=== PATIENT | female | born 2000 | race Two or more races ===

== ENCOUNTER 2025-05-19 17:45 | Emergency (ER) | payer MEDICAID, SELFPAY ==
[2025-05-19 17:47] VITALS: BMI 15.9
[2025-05-19 17:57] VITALS: BP 116/70; PULSE 89; RESP 20; TEMP 37.1; O2SAT 100
--- NOTE | 2025-05-19 18:40 | XR_ITS ---
Examination: OB Transvaginal ultrasound of the pelvis, complete Technique: Transvaginal sonographic images pelvis performed using matias scale imaging Exam date and time: May 19, 2025, 2100 hours INDICATIONS: Positive test, assessment viability FINDINGS: Uterus 5.7 cm endometrial stripe 1.2 cm No uterine mass or intrauterine gestation Right ovary obscured by bowel gas Left ovary 2.3 cm arterial flow IMPRESSION: No uterine mass or intrauterine gestation.
--- NOTE | 2025-05-19 18:40 | PD.EDRME ---
Rapid Medical Screening Exam [facility] Arrival date/time: 05/19/25 17:45 24F at approximately 6-7 weeks and with history of NAGA presents to ED with abnormal outpatient US suspicious for ectopic . Patient denies abnormal pain and no vaginal bleeding. Chief Complaint: General Adult/Misc Complain Vital signs: Vital Signs Temperature 98.7 F 05/19/25 17:57 Pulse Rate 89 05/19/25 17:57 Respiratory Rate 20 05/19/25 17:57 Blood Pressure 116/70 05/19/25 17:57 Pulse Oximetry (%) 100 05/19/25 17:57 Oxygen Delivery Method Room Air 05/19/25 17:57 Exam: Well-appearing. Clinical Impression: vs ectopic vs miscarriage vs pelvic pain
[2025-05-19 18:57] LABS: Collection Type, Urine Clean Catch
[2025-05-19 19:10] LABS: Bilirubin,Urine Negative (Negative); Blood,Urine Negative (Negative); Clarity,Urine Clear (Clear/Hazy); Color,Urine Colorless (Lt Yel-Yel); Culture Indicated,Urine Not Indicated; Glucose, Urine Negative (Negative); Ketones,Urine Negative (Negative); Leukocyte Esterase,Urine Negative (Negative); Nitrite,Urine Negative (Negative); PH,Urine 7.0 (5.0-7.0); Protein,Urine Negative (Neg - Trace); RBC,Urine < 1 /hpf (0-3); Specific Gravity,Urine 1.004 (1.001-1.035); Squamous Epithelial Cell,Urine < 1 /hpf (0-5); Urobilinogen,Urine Negative mg/dL (0.0-1.0); WBC,Urine < 1 /hpf (0-5)
[2025-05-19 19:11] LABS: Basophils # (Auto) 0.1 Thou/mm3 (0.0-0.2); Basophils % (Auto) 1 % (0-2.5); Eosinophils # (Auto) 0.2 Thou/mm3 (0.0-0.5); Eosinophils % (Auto) 2 % (0-10); Hematocrit 26.5 % (36.0-46.0); Hemoglobin 7.5 g/dL (12.0-16.0); Immature Granulocytes Auto 0.02 Thou/mm3 (0.00-0.00); Lymphocytes # (Auto) 2.0 Thou/mm3 (1.0-4.8); Lymphocytes % (Auto) 27 % (10-50); Mean Corpuscular HGB Conc 28.3 g/dl (31.0-37.0); Mean Corpuscular Hemoglobin 17.6 pg (25.0-35.0); Mean Corpuscular Volume 62 fL (80-100); Monocytes # (Auto) 0.6 Thou/mm3 (0.0-0.8); Monocytes % (Auto) 8 % (0-12); Neutrophils # (Auto) 4.7 Thou/mm3 (1.8-7.7); Neutrophils % (Auto) 63 % (37-80); Nucleated Red Blood Cell # 0.00 Thou/mm3 (0.00-0.00); Nucleated Red Blood Cell % 0 /100 WBC (0); Platelet Count 253 Thou/mm3 (140-440); RDW Standard Deviation 39.1 fL (36.4-46.3); Red Blood Count 4.27 Miln/mm3 (4.00-5.20); White Blood Count 7.5 Thou/mm3 (3.6-11.0)
[2025-05-19 19:16] LABS: Amphetamine/Methamp Scrn,U Negative (Negative); Barbiturate Screen,Urine Negative (Negative); Benzodiazepines Screen,Urine Negative (Negative); Benzoylecgonine Screen, Ur Negative (Negative); Fentanyl Screen,Urine Negative (Negative); Opiate Screen,Urine Negative (Negative); THC Screen,Urine Negative (Negative)
[2025-05-19 19:17] LABS: Alanine Aminotransferase 13 U/L (10-49); Albumin, Serum 4.7 gm/dL (3.5-5.0); Albumin/Globulin Ratio 1.6 (1.2-2.2); Alkaline Phosphatase 52 U/L (46-116); Anion Gap 9 (7-16); Aspartate Amino Transferase 25 U/L (0-34); BUN/Creatinine Ratio 10 Ratio (12-20); Beta HCG,Quantitative 90 mIU/mL (<5.0); Bilirubin,Total 0.5 mg/dL (0.3-1.2); Blood Urea Nitrogen 6 mg/dL (9-23); Calcium 9.2 mg/dL (8.3-10.6); Calcium (Corrected) 9.2 mg/dL (8.5-10.1); Carbon Dioxide 20.9 mMol/L (20.0-31.0); Chloride 110 mMol/L (98-107); Creatinine (Component) 0.6 mg/dL (0.6-1.3); Estimated Creatinine Clearance 94.8 mL/min (>60); Globulin 2.9 gm/dL (2.3-3.5); Glucose 88 mg/dL (74-106); Osmolality,Calculated 276 (275-295); Potassium 4.0 mMol/L (3.4-5.1); Sodium 140 mMol/L (136-145); Total Protein 7.6 gm/dL (5.7-8.2); eGFR > 60 See Note
--- NOTE | 2025-05-19 21:46 | EDNOTE_ITS ---
ED General RME/HPI General Chief complaint: General Adult/Misc Complain Stated complaint: SENT TO ER FOR ABNORMAL US 7 WEEKS OB Time Seen by Provider: 05/19/25 19:01 Arrival date/time: 05/19/25 17:45 24-year-old female patient came in for evaluation regarding concern about ectopic . Patient was tested positive for few days ago, went to her PCP, and they did an ultrasound and the cable television line technician cannot find any IUP they are worried about ectopic . Patient is denying any abdominal pain no vaginal bleeding or spotting. Patient is 1 para 0. She does not know how far along she is. RME / HPI RME / HPI narrative: 05/19/25 17:45 24F at approximately 6-7 weeks and with history of NAGA presents to ED with abnormal outpatient US suspicious for ectopic . Patient denies abnormal pain and no vaginal bleeding. Exam: Well-appearing. Impression: vs ectopic vs miscarriage vs pelvic pain Related Data Allergies Allergy/AdvReac Type Severity Reaction Status Date / Time NKA Allergy Unknown Uncoded 05/19/25 17:49 No Known Allergies Allergy Unknown Uncoded 05/19/25 17:49 Review of Systems Review of Systems Narrative Review of Systems: Review of system reviewed and within normal limits except mentioned in HPI ED Exam Narrative Physical exam: VITAL SIGNS: Reviewed. GENERAL APPEARANCE: Alert and interactive, follows commands, no acute distress, HEAD AND FACE: Non-traumatic. ENT: PERRL, pink conjunctivitis, eyelid no trauma, Mucous membrane moist. NECK: Supple, nontender, no nuchal rigidity. CHEST: No tenderness, no crepitus, no paradoxical movement, no retractions. LUNGS: Clear, well ventilated, symmetric, no rales, no wheezing, no ronchi, no stridor, good breath sounds bilaterally. HEART: Regular rate, regular rhythm, no murmur, no gallops. ABDOMEN: Soft, positive bowel sounds, nondistended, no guarding, nontender, no rebound, no masses, RECTAL: Deferred. GENITAL: Deferred. NEUROLOGICAL: Gross motor function intact sensory function intact, Appropriate for age. MUSCULOSKELETAL: low back nontender, full range of motion. EXTREMITIES: Nontender, full range of motion. SKIN: Color pink, dry, no rash, no lacerations, no abrasions, no contusions. LYMPHATICS: Deferred. Course Quality Measures none Orders Category Date Time Status US OB transvaginal Stat Exams 05/19/25 18:40 Completed Beta HCG,Quantitative Stat Lab 05/19/25 18:50 Completed CBC Stat Lab 05/19/25 18:50 Completed CMP [Comprehensive Metabolic Panel] Stat Lab 05/19/25 18:50 Completed Drug Screen,Urine Stat Lab 05/19/25 18:47 Completed Urinalysis, C/S if Indicated Stat Lab 05/19/25 18:47 Completed HYDROcodone/APAP 10/325 [[place] 10/325] Med 05/19/25 21:34 Discontinued 1 tab PO X1 ONE Vital Signs Vital signs: Vital Signs Temperature 98.7 F 05/19/25 17:57 Pulse Rate 89 05/19/25 17:57 Respiratory Rate 20 05/19/25 17:57 Blood Pressure 116/70 05/19/25 17:57 Pulse Oximetry (%) 100 05/19/25 17:57 Oxygen Delivery Method Room Air 05/19/25 17:57 Discharge Plan Plan Patient Disposition: HOME (Self Care) Discharge Disposition comment: Stable Prescriptions/Referrals Referrals: No Primary/Family,Physician [Primary Care Provider] - In 1 week Problem List Clinical Impression: , Anemia Patient/Caregiver Discharge Instructions Discharge Activity: activity as tolerated Education Materials: What Is Care? Additional Instructions: Thank you for the opportunity for serving you today. You are stable for discharged . You are advised to: Follow-up with your PHCG in 1 to 2 days Return to ED for worsening of symptoms Increase oral fluids Your hCG today was noted to be 90. Ultrasound of your did not show anything no intrauterine gestation or no sign of ectopic at this time Please follow-up with your PHARMACY TE[facility]NIC[facility] and ask for repeat hCG in 1 week Print Language: Samoan Stand Alone Forms: Lynda Award Info., Patient Portal Info Letter PA/WHISTLE PUNK Supervising Physician PA/WHISTLE PUNK Supervising Physician: MD Jesus MDM Narrative MDM hospital course (for use when minimal MDM required): 24-year-old female patient came in for evaluation regarding concern about ectopic . Patient was tested positive for few days ago, went to her PCP, and they did an ultrasound and the cable television line technician cannot find any IUP they are worried about ectopic . Patient is denying any abdominal pain no vaginal bleeding or spotting. Patient is 1 para 0. She does not know how far along she is. Today's laboratory workup all came back unremarkable except for hemoglobin of 7.5 hematocrit of 26.5. Patient denies any bleeding. Patient hCG was noted to be 90. Ultrasound of did not show any IUP or no adnexal masses noted. No abnormality noted. Results discussed with the patient and family. I told her to follow-up closely with PHARMACY TECHNIC[facility] for repeat hCG and repeat ultrasound in 1 week. Patient agrees with the plan Medication Administration(s) Medication Administration History Discontinued Medications Hydrocodone Bitart/Acetaminophen (Hydrocodone/Apap 10/325 Tab) 1 tab PO X1 ONE Stop: 05/19/25 21:35 Last Admin: 05/19/25 21:40 Dose: Not Given Documented By: CVL Non-Admin Reason: Cancelled by Provider Diagnosis Differential Diagnosis ED Complaint MDM: Anemia, , ectopic , Diagnoses ruled out and/or further discussions: , anemia
[2025-05-19 21:53] VITALS: BP 116/76; PULSE 86; RESP 16; TEMP 36.7; O2SAT 98
== END 2025-05-19 21:54 | disposition home or self-care (01) ==
PROVIDERS: Physician Assistant; Emergency Provider Emergency Medicine
DX: O99.011 Anemia complicating pregnancy, first trimester (principal); D64.9 Anemia, unspecified; Z3A.01 Less than 8 weeks gestation of pregnancy
CPT/HCPCS: 36415; 76817; 80053; 80307; 81001; 84702; 85025; 99283